=== PATIENT | female | born 1940 | race Caucasian/White ===

== ENCOUNTER 2018-03-18 09:54 | Outpatient (CLI) | payer MEDICARE ==
--- NOTE | 2018-03-18 11:38 | ULT ---
RENAL ULTRASOUND: DATE: 03/18/2018. COMPARISON: None. History Hematuria. TECHNIQUE: Multiplanar castillo scale sonographic imaging of the kidneys and urinary bladder obtained. FINDINGS: Right kidney measures 8.2 x 3.5 x 3.4 cm and demonstrates no hydronephrosis, stone, or mass lesion. Urinary bladder appears grossly unremarkable. The left kidney measures 9.1 x 4.9 x 5.0 cm. No stone or hydronephrosis is seen. There is a hypoech oic lesion in the upper pole of the left kidney measuring 1.1 x 0.9 x 1.3 cm, not optimally character ized on this study secondary to size, location, and body habitus. A cyst is favored. IMPRESSION: Probable cyst upper pole left kidney. No acute findings. Given the nonspecific nature of the small hypoechoic area in the upper pole of the left kidney, a followup ultrasound in 6 months is advised. POS: [facility]
== END 2018-03-18 09:55 | disposition home or self-care (01) ==
LOC: BICCT 09:54
PROVIDERS: ATTEND Specialist
DX: R31.9 Hematuria, unspecified (principal); F17.200 Nicotine dependence, unspecified, uncomplicated; N28.1 Cyst of kidney, acquired; R93.422 Abnormal radiologic findings on diagnostic imaging of left kidney
CPT/HCPCS: 76770

== ENCOUNTER 2022-03-09 08:23 | Day surgery (SDC) | payer MEDICARE ==
[~2022-03-09 08:23] MED LIST: Zoledronic Acid/Mannitol&Water 5 MG in Premix Bag 1 BAG IVPB SCH
[2022-03-09 16:06] VITALS: BP 170/72; TEMP 97.4
== END 2022-03-09 16:08 | disposition home or self-care (01) ==
LOC: ONC/OP 08:23
PROVIDERS: ATTEND Specialist
DX: M81.0 Age-related osteoporosis without current pathological fracture (principal); Z88.1 Allergy status to other antibiotic agents; Z88.8 Allergy status to other drugs, medicaments and biological substances
CPT/HCPCS: 96413; J3489

== ENCOUNTER 2023-03-19 08:18 | Day surgery (SDC) | payer MEDICARE ==
[~2023-03-19 08:18] MED LIST changes: +Zoledronic Acid/Mannitol&Water 5 MG in Premix 1 BAG IVPB SCH; -Zoledronic Acid/Mannitol&Water 5 MG in Premix Bag 1 BAG IVPB SCH
[2023-03-19 08:32] VITALS: BP 132/60; TEMP 97.6
== END 2023-03-19 10:21 | disposition home or self-care (01) ==
LOC: ONC/OP 08:18
PROVIDERS: ATTEND Specialist
DX: M81.0 Age-related osteoporosis without current pathological fracture (principal); Z88.1 Allergy status to other antibiotic agents; Z88.8 Allergy status to other drugs, medicaments and biological substances
CPT/HCPCS: 96365; J3489

== ENCOUNTER 2023-08-15 10:03 | Outpatient (CLI) | payer MEDICARE | END 2023-08-15 10:04 | disposition home or self-care (01) | LOC: BICMAMMO 10:03 | PROVIDERS: ATTEND Specialist | DX: M85.9 Disorder of bone density and structure, unspecified (principal); M81.0 Age-related osteoporosis without current pathological fracture | CPT/HCPCS: 77080 ==